=== PATIENT | female | born 1970 | race Caucasian/White ===

== ENCOUNTER 2020-07-15 06:21 | Emergency (ER) | payer MEDICAID ==
[~2020-07-15] VITALS: Ht 165.1 cm; Wt 73.6 kg
[2020-07-15] MEDS ORDERED: PHENAZOPYRIDINE 200 MG TABLET PO ONE (07:00)
[2020-07-15] MEDS ORDERED: PHENAZOPYRIDINE 200 MG TABLET ONE (07:09)
[2020-07-15 07:42] LABS: MICROSCOPIC INDICATED
[2020-07-15 08:31] VITALS: BP 126/79
== END 2020-07-15 08:32 | disposition home or self-care (01) ==
LOC: ED 07:27
DX: R30.0 Dysuria (principal); R39.15 Urgency of urination
CPT/HCPCS: 81001; 87086; 99283

== ENCOUNTER 2020-08-12 05:14 | Emergency (ER) | payer MEDICAID ==
[~2020-08-12] VITALS: Ht 165.1 cm; Wt 70.0 kg
[2020-08-12 05:21] VITALS: BP 130/81
[2020-08-12] MEDS ORDERED: IBUPROFEN 600 MG TABLET ONE (05:39)
--- NOTE | 2020-08-12 05:43 | NUR ---
PT MEDICATED PER NOV RESTING ON GURNEY NADN NO NEEDS AT THIS TIME
[2020-08-12] MEDS ORDERED: IBUPROFEN 600 MG TABLET PO ONE (06:00)
[2020-08-12] MEDS ORDERED: ONDANSETRON 2MG/ML, 2ML IVPush ONE (06:00)
[2020-08-12 06:06] LABS: BASOPHILS % (AUTO) 1 % (0-1); EOSINOPHILS % (AUTO) 2 % (1-7); LYMPHOCYTES % (AUTO) 30 % (22-44); MEAN CORPUSCULAR HEMOGLOBIN 32.3 pg (27.0-34.8); MEAN CORPUSCULAR HGB CONC 33.5 g/dL (32.4-35.8); MEAN PLATELET VOLUME 8.6 fL (7.4-10.4); MONOCYTES % (AUTO) 8 % (2-9); NEUTROPHILS % (AUTO) 59 % (42-75); PLATELET COUNT 321 x10^3/uL (130-400); RED BLOOD COUNT 4.46 x10^6/uL (3.82-5.3); RED CELL DISTRIBUTION WIDTH 13.3 % (9.6-15.2)
[2020-08-12 06:09] LABS: MD NO
[2020-08-12 06:15] LABS: ALANINE AMINOTRANSFERASE 23 U/L (12-78); ALBUMIN 3.9 g/dL (3.4-5.0); CALCIUM 8.3 mg/dL (8.5-10.1)
[2020-08-12 06:18] LABS: ALKALINE PHOSPHATASE 76 U/L (45-117); BILIRUBIN,TOTAL 0.4 mg/dL (0.2-1.0); CREATININE 0.59 mg/dL (0.55-1.02); TOTAL PROTEIN 7.3 g/dL (6.4-8.2)
--- NOTE | 2020-08-12 06:41 | NUR ---
THIS IS A 50Y F THAT COMES IN TONIGHT FOR BARRON COUGH AND BODYACHES. PT STS SHE MIGHT HAVE BEEN EXPOSED TO COVID AT WORK BUT IS UNSURE IF SHE HAS BEEN. PT CONNECTED TO MONITORING VSS NADN AT THIS TIME WITH OCCASIONAL COUGH NOTED, PT STS THE COUGH IS NEW AND BEGAN TODAY.
[2020-08-12 06:51] LABS: ANION GAP 5 mmol/L (5-15); CHLORIDE 108 mmol/L (98-107)
--- NOTE | 2020-08-12 07:50 | NUR ---
PT DECLINED ZOFRAN MEDICATION.
--- NOTE | 2020-08-12 08:00 | NUR ---
PT REC'VD DISCHARGE INSTRUCTIONS AND EDUCATION. PT HAD NO QUESTIONS. PT AMBULATED TO DC AREA, STEADY GAIT.
== END 2020-08-12 08:39 | disposition home or self-care (01) ==
LOC: ED 06:36
DX: H60.502 Unspecified acute noninfective otitis externa, left ear (principal); Z20.828 Contact with and (suspected) exposure to other viral communicable diseases; B34.9 Viral infection, unspecified; R53.83 Other fatigue; F17.200 Nicotine dependence, unspecified, uncomplicated; Z91.041 Radiographic dye allergy status
CPT/HCPCS: 71045; 80053; 85025; 87635; 99284

== ENCOUNTER 2021-01-03 15:26 | Emergency (ER) | payer MEDICAID ==
[~2021-01-03] VITALS: Ht 165.1 cm; Wt 67.5 kg
--- NOTE | 2021-01-03 15:47 | NUR ---
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
--- NOTE | 2021-01-03 16:06 | NUR ---
cc of burning and 10/10 pain in throat since 1699 last night. pt unable to sleep. hx of gerd. pt in gurney, crying due to pain.
[2021-01-03] MEDS ORDERED: MAALOX/HYOSCYAMINE/LIDOCAINE 45 ML BTL PO ONE (16:30)
[2021-01-03] MEDS ORDERED: MAALOX/HYOSCYAMINE/LIDOCAINE 45 ML BTL ONE (16:41)
[2021-01-03 16:43] LABS: BASOPHILS % (AUTO) 1 % (0-1); EOSINOPHILS % (AUTO) 0 % (1-7); LYMPHOCYTES % (AUTO) 21 % (22-44); MEAN CORPUSCULAR HEMOGLOBIN 31.3 pg (27.0-34.8); MEAN CORPUSCULAR HGB CONC 33.1 g/dL (32.4-35.8); MEAN PLATELET VOLUME 8.8 fL (7.4-10.4); MONOCYTES % (AUTO) 6 % (2-9); NEUTROPHILS % (AUTO) 73 % (42-75); PLATELET COUNT 285 x10^3/uL (130-400); RED BLOOD COUNT 4.33 x10^6/uL (3.82-5.3); RED CELL DISTRIBUTION WIDTH 13.1 % (9.6-15.2)
[2021-01-03 16:53] LABS: MD NO
[2021-01-03 17:01] LABS: ALANINE AMINOTRANSFERASE 20 U/L (12-78); ALBUMIN 4.1 g/dL (3.4-5.0); ANION GAP 7 mmol/L (5-15); CALCIUM 9.2 mg/dL (8.5-10.1); CHLORIDE 109 mmol/L (98-107); CREATININE 0.66 mg/dL (0.55-1.02)
[2021-01-03 17:06] LABS: ALKALINE PHOSPHATASE 60 U/L (45-117); BILIRUBIN,TOTAL 0.3 mg/dL (0.2-1.0); TOTAL PROTEIN 7.2 g/dL (6.4-8.2); TROPONIN I < 0.015 ng/mL (0.000-0.045)
[2021-01-03 17:44] VITALS: BP 137/85
== END 2021-01-03 17:46 | disposition home or self-care (01) ==
LOC: ED 17:40
DX: K21.00 Gastro-esophageal reflux disease with esophagitis, without bleeding (principal); R07.89 Other chest pain; Z86.39 Personal history of other endocrine, nutritional and metabolic disease; Z87.891 Personal history of nicotine dependence
CPT/HCPCS: 36415; 80053; 83690; 84484; 85025; 93005; 99284